=== PATIENT | female | born 1990 | race Caucasian/White ===

== ENCOUNTER 2017-01-01 20:24 | Emergency (ER) | payer OTHER, BC ==
[~2017-01-01] VITALS: Ht 167.6 cm; Wt 67.2 kg
[~2017-01-01 20:24] MED LIST: ENDOCET 5-3251 EACH PO; MACROBID100 MG PO; Motrin PO; Percocet 5/325,Endoc PO; ZYVOX600 MG PO
[2017-01-01 21:22] LABS: HEMATOCRIT 41.8 % (36.0-46.0); MCH 31.3 PG (29.0-34.0); MCV 92.3 FL (83-99); MEAN PLAT.VOLUME 9.6 uM^3 (9.5-12.4); PLATELET COUNT 370 K/uL (156-360); RBC DIS.WIDTH-CV 12.9 % (11.8-14.6); RBC DIS.WIDTH-SD 43.6 % (39-53); RED BLOOD COUNT 4.53 M/uL (3.80-5.20); WHITE BLOOD COUNT 12.7 K/uL (4.1-10.2)
[2017-01-01 21:26] LABS: CHLORIDE 107 mEq/L (99-109); POTASSIUM 4.1 mEq/L (3.7-5.4)
[2017-01-01 21:27] LABS: SODIUM 142 mEq/L (136-147)
[2017-01-01 21:29] LABS: GLUCOSE 86 mg/dL (70-99)
[2017-01-01 21:30] LABS: ANION GAP 12 MEQ/L (2-14)
[2017-01-01 21:31] LABS: TOTAL BILIRUBIN 1.2 mg/dL (0.0-1.0)
[2017-01-01 21:32] LABS: ALKALINE PHOSPHATASE 44 IU/L (3-129)
[2017-01-01 21:33] LABS: GFR ESTIMATE (CALCULATED) > 59 mL/min/
[2017-01-01 21:34] LABS: DIRECT BILIRUBIN 0.5 mg/dL (0.0-0.3); UREA NITROGEN (BUN) 12 mg/dL (9-23)
[2017-01-01 21:36] LABS: LIPASE 13 U/L (1.0-51.0)
[2017-01-01 21:44] LABS: QUANTITATIVE HCG < 4.0 MIU/ML
[2017-01-01] MEDS ORDERED: FLEXERIL10 MG PO (22:56)
[2017-01-01] MEDS ORDERED: NAPROSYN500 MG PO (22:56)
[2017-01-01 23:02] VITALS: BP 130/86
== END 2017-01-01 23:02 | disposition home or self-care (01) ==
LOC: EME 20:24
PROVIDERS: Emergency Medicine
DX: S20.219A Contusion of unspecified front wall of thorax, initial encounter (principal); S30.1XXA Contusion of abdominal wall, initial encounter; V43.52XA Car driver injured in collision with other type car in traffic accident, initial encounter; Y92.411 Interstate highway as the place of occurrence of the external cause; K21.9 Gastro-esophageal reflux disease without esophagitis
CPT/HCPCS: 74176; 80048; 80076; 83690; 84702; 85027; 99281; 99285